=== PATIENT | male | born 1975 | race Two or more races ===

== ENCOUNTER 2024-01-15 14:37 | Emergency (ER) | payer MEDICAID ==
[~2024-01-15] VITALS: Ht 170.2 cm; Wt 90.7 kg
[2024-01-15] MEDS ORDERED: LIDOCAINE 1%-EPI 1:100,000 20 ML VIAL ONE (15:25)
[2024-01-15] MEDS: LIDOCAINE 1%-EPI 1:100,000 50 ML VIAL IJ ONE (15:27)
[2024-01-15 15:35] VITALS: BP 150/81; TEMP 98.2; O2SAT 98
[2024-01-16] MEDS ORDERED: CEPH500C2 PO (20:47)
== END 2024-01-15 16:42 | disposition left against medical advice (07) ==
LOC: EDBD → ER 14:39
DX: S51.012A Laceration without foreign body of left elbow, initial encounter (principal); Z60.2 Problems related to living alone; X99.1XXA Assault by knife, initial encounter; Y93.89 Activity, other specified; Y92.89 Other specified places as the place of occurrence of the external cause; Y99.8 Other external cause status
CPT/HCPCS: 99284; 73080; 73060; J3490; A6403

== ENCOUNTER 2024-01-16 19:37 | Emergency (ER) | payer MEDICAID ==
[~2024-01-16] VITALS: Ht 177.8 cm; Wt 99.8 kg
[2024-01-16] MEDS ORDERED: LIDOCAINE HCL/PF 1% 30 ML SDV ONE (20:13)
[2024-01-16] MEDS ORDERED: BACI/NEOM/POLY B OINT PKT 1 UDPKT PACKET ONE (20:13)
[2024-01-16] MEDS ORDERED: TDAP [DIPH/PERTUSSIS/TET] 0.5 ML VIAL IM ONE (20:14)
[2024-01-16] MEDS ORDERED: LIDOCAINE HCL/MPF 1% 30 ML VIAL IJ ONE (20:16)
[2024-01-16] MEDS: BACI/NEOM/POLY B OINT PKT 1 UDPKT PACKET TP ONE (20:18)
[2024-01-16] MEDS: LIDOCAINE HCL/PF 1% 30 ML VIAL TP ONE (20:18)
[2024-01-16] MEDS: TDAP [DIPH/PERTUSSIS/TET] 0.5 ML VIAL IM ONE (20:18)
[2024-01-16] MEDS ORDERED: CEPH500C2 PO (20:47)
[2024-01-16 20:57] VITALS: BP 137/61; TEMP 98.7; O2SAT 98
[2024-01-17] MEDS ORDERED: GLIP5TAB13 PO (10:40)
== END 2024-01-16 20:58 | disposition home or self-care (01) ==
LOC: ER 19:41
DX: S51.822A Laceration with foreign body of left forearm, initial encounter (principal); E11.9 Type 2 diabetes mellitus without complications; Z60.2 Problems related to living alone; W45.8XXA Other foreign body or object entering through skin, initial encounter; Y93.89 Activity, other specified; Y92.89 Other specified places as the place of occurrence of the external cause; Y99.8 Other external cause status
CPT/HCPCS: 12002; 90471; 90715; 99283; J3490

== ENCOUNTER 2024-01-17 09:09 | Emergency (ER) | payer MEDICAID ==
[~2024-01-17] VITALS: Ht 177.8 cm; Wt 99.8 kg
[~2024-01-17 09:09] MED LIST: CEPH500C2 PO
[2024-01-17 09:12] VITALS: TEMP 98.2
[2024-01-17] MEDS: BLOOD SUGAR DIAGNOSTIC 1 EACH STRIP IN ONE (09:20)
[2024-01-17] MEDS ORDERED: INSULIN REGULAR, HUMAN 100 UNIT/ML 10 ML VIAL ONE (09:38)
[2024-01-17] MEDS: IV NS 0.9% 1,000 ML BAG IV ONE (09:42)
[2024-01-17] MEDS: INSULIN REGULAR, HUMAN 100 UNIT/ML 10 ML VIAL SQ ONE (09:44)
[2024-01-17 09:47] LABS: BASOPHILS % (AUTO) 0.5 % (0.0-2.0); EOSINOPHILS % (AUTO) 0.8 % (0.0-6.0); HEMATOCRIT 43 % (39-51); HEMOGLOBIN 14.7 g/dL (13.5-17.5); MEAN CORPUSCULAR HEMOGLOBIN 31 PG (26.0-33.0); MEAN CORPUSCULAR HGB CONC 35 g/dl (31.0-36.0); MEAN CORPUSCULAR VOLUME 91 fL (80-96); MONOCYTES # (AUTO) 0.6 K/uL (0.1-1.30); MONOCYTES % (AUTO) 8.7 % (2.0-12.0); NEUTROPHILS # (AUTO) 4.7 K/uL (1.8-8.9); PLATELET COUNT (AUTO) 138 K/uL (150-450); RED CELL DISTRIBUTION WIDTH 13.1 % (11.5-15.0); WHITE BLOOD COUNT (AUTO) 6.4 K/uL (4.3-11.0)
[2024-01-17 09:55] LABS: CALCIUM, SERUM 9.1 mg/dL (8.5-10.1); CARBON DIOXIDE 30 mmol/L (21-32); CHLORIDE 100 mmol/L (98-107); CREATININE 0.8 mg/dL (0.6-1.3); POTASSIUM 3.8 mmol/L (3.5-5.1); SODIUM SERUM 135 mmol/L (136-145); UREA NITROGEN, BLOOD 19 mg/dL (7-18)
[2024-01-17 10:02] LABS: APPEARANCE,URINE CLEAR (CLEAR); BILIRUBIN,URINE NEGATIVE (NEGATIVE); BLOOD, URINE TRACE-INTA Ery/uL (NEGATIVE); COLOR,URINE YELLOW (YELLOW); KETONES,URINE NEGATIVE (NEGATIVE); LEUKOCYTE ESTERASE ,URINE NEGATIVE (NEGATIVE); NITRITE, URINE NEGATIVE (NEGATIVE); PH,URINE 6.5 (5.0-8.0); PROTEIN,URINE NEGATIVE (NEGATIVE); UGLUCOSE 3+ mg/dL (NEGATIVE)
[2024-01-17 10:17] LABS: GLUCOSE 422 mg/dL (74-106)
[2024-01-17] MEDS ORDERED: GLIP5TAB13 PO (10:40)
[2024-01-17 10:54] VITALS: BP 146/90; O2SAT 98
[2024-01-17 11:05] LABS: ACETONE, SERUM NEGATIVE (NEGATIVE)
[2024-01-17 11:12] LABS: ADD URINE CULTURE NO; BACTERIA,URINE Few /HPF (None Seen); RBC,URINE 0-2 /HPF (0-2); SQUAMOUS EPITHELIAL CELL,UR None Seen /HPF (None Seen); WBC,URINE 0-2 /HPF (0-3)
[2024-01-17 11:51] LABS: ABG BASE EXCESS 1.8 mmol/L; ABG OXYGEN SATURATION 96.6 % (92.0-98.5); ABG PCO2 44.4 mmHg (35.0-45.0); ABG PH 7.402 (7.350-7.450); ABG PO2 90.3 mmHg (75.0-100.0); AaDO2 6.3 mmHg; COHb 1.6 % (0.5-1.5); MetHb 0.3 % (0.0-1.5); O2Hb 94.8 % (94.0-97.0); SITE, ABG Right Radial
== END 2024-01-17 10:55 | disposition home or self-care (01) ==
LOC: ER 09:12
DX: E11.65 Type 2 diabetes mellitus with hyperglycemia (principal); Z79.899 Other long term (current) drug therapy; Z91.148 Patient's other noncompliance with medication regimen for other reason; Z76.0 Encounter for issue of repeat prescription; Z60.2 Problems related to living alone
CPT/HCPCS: 99283; 96360; 82803; 85025; 80048; 82010; 81001; 36415; 82962 ×2; 36600 ×2; 96372; J1815; J7030

== ENCOUNTER 2024-01-31 08:40 | Emergency (ER) | payer MEDICAID ==
[~2024-01-31] VITALS: Ht 177.8 cm; Wt 99.8 kg
[2024-01-31 08:40] VITALS: BP 149/96; TEMP 98.2; O2SAT 99
[~2024-01-31 08:40] MED LIST changes: +GLIP5TAB13 PO
== END 2024-01-31 09:00 | disposition home or self-care (01) ==
LOC: ER 08:45
DX: S41.111D Laceration without foreign body of right upper arm, subsequent encounter (principal); Z48.02 Encounter for removal of sutures; E11.9 Type 2 diabetes mellitus without complications; Z60.2 Problems related to living alone; X58.XXXD Exposure to other specified factors, subsequent encounter